=== PATIENT | male | born 1950 | race Caucasian/White ===

== ENCOUNTER 2025-01-08 10:04 | Outpatient (CLI) | payer MEDICARE, BC, SELFPAY ==
--- NOTE | 2025-01-08 11:04 | W.ANESCHARGE ---
Anesthesia Charges Start Date/Time Anesthesia Start Date: 01/08/25 Anesthesia Start Time: 11:11 Stop Date/Time Anesthesia Stop Date: 01/08/25 Anesthesia Stop Time: 11:34 Summary Extremes of Age - Over 70 or under 1: CANAL EQUIPMENT MECHANIC Coding CPT Codes CPT Codes: HUGO LWR INTST NDSC NOS - [id number] ([id number]) P2 - PATIENT W/MILD SYST DISEASE, QX - CANAL EQUIPMENT MECHANIC SVC W/ MD MED DIRECTION, QK - CABLE TENDER 2-4 CNCRNT ANES PROC Additional Codes: Summary - Extremes of Age - Over 70 or under 1: CANAL EQUIPMENT MECHANIC ([id number])
--- NOTE | 2025-01-08 11:59 | W.ANESCHARGE ---
Anesthesia Charges Start Date/Time Anesthesia Start Date: 01/08/25 Anesthesia Start Time: 11:11 Stop Date/Time Anesthesia Stop Date: 01/08/25 Anesthesia Stop Time: 11:34 Summary Extremes of Age - Over 70 or under 1: MDA Coding CPT Codes CPT Codes: ANES LWR INTST NDSC NOS - [id number] ([id number]) P2 - PATIENT W/MILD SYST DISEASE, QK - MANAGER ETHICS 2-4 CNCRNT ANES PROC, QX - ELECTRIC POWER LINE REPAIRER SVC W/ MD MED DIRECTION Additional Codes: Summary - Extremes of Age - Over 70 or under 1: MDA ([id number])
== END 2025-01-08 10:05 | disposition home or self-care (01) ==
PROVIDERS: PCP Physician Assistant Medical; Visit Provider Internal Medicine Gastroenterology
DX: Z12.11 Encounter for screening for malignant neoplasm of colon (principal); D12.3 Benign neoplasm of transverse colon; K57.30 Diverticulosis of large intestine without perforation or abscess without bleeding
CPT/HCPCS: 00811; 45380; 88305; 99100; J2704